=== PATIENT | male | born 1945 | race African-American/Black ===

== ENCOUNTER 2018-01-14 18:15 | Inpatient (IN) | payer OTHER, MEDICARE ==
[~2018-01-14] VITALS: Ht 185.4 cm; Wt 111.7 kg
[2018-01-14] MEDS ORDERED: ONDANSETRON HCL INJ 2 MG/ML VIAL IV PRN (19:00)
[2018-01-14] MEDS ORDERED: MORPHINE SULFATE 2 MG/ML SYR IV PRN (19:00)
[2018-01-14] MEDS ORDERED: HYDRALAZINE HCL 20 MG/ML VIAL IV PRN (19:00)
[2018-01-14] MEDS ORDERED: HYDROCODONE/APAP 5MG-325MG TAB PO PRN (19:00)
[2018-01-14 20:00] VITALS: BP 149/80
[2018-01-14 20:45] LABS: BASOPHILS % 0.3 % (0.0-1.0); EOSINOPHILS # (AUTO) 0.3 (0.0-0.4); EOSINOPHILS % 2.1 % (0.0-6.0); HEMATOCRIT 47.1 % (38.2-49.6); HEMOGLOBIN 15.4 g/dL (14.0-18.0); LYMPHOCYTES # (AUTO) 2.1 (1.0-3.2); LYMPHOCYTES % 15.1 % (18.0-39.1); MEAN CORPUSCULAR HEMOGLOBIN 31.3 pg (28-32); MEAN CORPUSCULAR HGB CONC 32.7 g/dL (31-35); MEAN CORPUSCULAR VOLUME 95.7 fL (81-99); MONOCYTES # (AUTO) 1.5 (0.2-0.8); NEUTROPHILS # (AUTO) 9.6 (2.1-6.9); NEUTROPHILS % 71.1 % (38.7-80.0); PLATELET COUNT 236 x10e3/uL (140-360); RED BLOOD COUNT 4.92 x10e6/uL (4.3-5.7); RED CELL DISTRIBUTION WIDTH 13.5 % (11.7-14.4)
[2018-01-14 20:46] LABS: INR 1.04; PROTHROMBIN TIME 14.5 seconds (11.9-14.5)
[2018-01-14 20:53] LABS: ANION GAP 17.6 mmol/L (8-16); BLOOD UREA NITROGEN 11 mg/dL (7-26); BUN/CREATININE RATIO 9 (6-25); CALCIUM 9.7 mg/dL (8.4-10.2); CARBON DIOXIDE 26 mmol/L (22-29); CHLORIDE 101 mmol/L (98-107); CREATININE, SERUM 1.16 mg/dL (0.72-1.25); EST GLOMERULAR FILTRATION RATE > 60 ML/MIN (60-); GLUCOSE 112 mg/dL (74-118); POTASSIUM 3.6 mmol/L (3.5-5.1); SODIUM 141 mmol/L (136-145)
[2018-01-14] MEDS ORDERED: MORPHINE SULFATE INJ 4 MG/ML INJ IV PRN (21:45)
[2018-01-14] MEDS: LACTATED RINGER'S 1,000 ML IV SCH (22:15)
[2018-01-14] MEDS: MEROPENEM 500 MG VIAL IV SCH (22:15)
[2018-01-14 22:30] VITALS: BP 145/71
[2018-01-14] MEDS ORDERED: COMBIGAN EYE DRO5 ML OU (22:44)
[2018-01-14] MEDS ORDERED: ADVIL200 M1 PO (22:44)
[2018-01-14] MEDS ORDERED: XALATAN2.5 ML OU (22:44)
[2018-01-14 22:48] VITALS: BP 145/71
[2018-01-15] VITALS (8 sets, daily range): BP systolic 122–147; BP diastolic 65–82
[2018-01-15] MEDS ORDERED: MEROPENEM 500MG 500 MG in SODIUM CHLORIDE 0.9% 50ML 50 ML IV SCH ×2
--- NOTE | 2018-01-15 00:05 | Diagnostic Imaging Report ---
EXAM: CHEST 2 VIEWS, PA and lateral INDICATION: Swelling/pain and testicular area COMPARISON: None FINDINGS: LINES/TUBES: None LUNGS: No consolidations or edema. Mild bibasilar atelectasis. PLEURA: No effusions or pneumothorax. HEART AND MEDIASTINUM: Normal size and contour. BONES AND SOFT TISSUES: No acute findings. IMPRESSION: Mild bibasilar atelectasis. Signed by: Dr. Ramona Varela M.D. on 01/15/2018 12:02 AM
[2018-01-15 04:16] LABS: CLARITY,URINE CLEAR (CLEAR); COLOR,URINE YELLOW (YELLOW); LEUKOCYTE ESTERASE ,URINE TRACE (NEGATIVE)
[2018-01-15 04:17] LABS: BILIRUBIN,URINE NEGATIVE (NEGATIVE); KETONES,URINE 1+ (NEGATIVE); NITRITE,URINE NEGATIVE (NEGATIVE); PROTEIN,URINE DIPSTICK NEGATIVE (NEGATIVE); URINE UROBILINOGEN 1 mg/dL (0.2 - 1)
[2018-01-15 04:22] LABS: RBC,URINE 0-5 /HPF (0-5); WBC,URINE (MAN) 21-50 /HPF (0-5)
[2018-01-15] MEDS: MEROPENEM 500 MG VIAL IV SCH ×4 (04:22→21:10)
[2018-01-15 04:23] LABS: BACTERIA,URINE MODERATE /HPF; EPITHELIAL CELLS,URINE RARE /LPF
[2018-01-15] MEDS: LACTATED RINGER'S 1,000 ML IV SCH ×2 (09:16→21:10)
--- NOTE | 2018-01-15 10:33 | History and Physical ---
CHIEF COMPLAINT: Epididymitis. HPI: This is a 72-year-old male with past medical history of glaucoma, in which he requires eye drops, who comes in as a direct admission from the urology office for concerns of epididymitis. Patient reports that he has been having his testicular pain ongoing since Saturday of last week. At first, he thought that it was just a regular itch, but then noticed that it has continued to get very swollen with some fever at home. He states that his testicles were very tender to palpation and very exquisite to pain. Patient eventually went to his urologist and was told this is epididymitis and sent here for further evaluation. Patient reports having a fever of 102 yesterday. Denies any nausea, vomiting, abdominal pain, or any other associated symptoms. He denies any chest pain or palpitations. Patient seen and evaluated at bedside on the medical floor, currently doing well with no other complaints at this time. REVIEW OF SYSTEMS: Pertinent positive: Epididymitis and fever. Pertinent negative: Denies any chest pain, palpitation, nausea, vomiting, diarrhea, dysuria, hematuria, frequency, urgency, lightheadedness, dizziness, abdominal pain, headache, shortness of breath, cough, congestion, or any other complaints. The rest of 14-point review of systems have been reviewed with the patient and are negative. ALLERGIES: NO KNOWN DRUG ALLERGIES. HOME MEDICATIONS: He takes Combigan 1 drop per eye b.i.d., next drop is Xalatan 1 drop at bedtime per eye. PAST MEDICAL HISTORY: He takes some glaucoma medications . PAST SURGICAL HISTORY: None. FAMILY HISTORY: Hypertension and diabetes. SOCIAL HISTORY: No drugs, no alcohol. Does not smoke. Still works. Good social support. PHYSICAL EXAMINATION: VITAL SIGNS: Temperature is 99, his T-max here was 100.4, he had a T-max of 102 in the urology office. His pulse is 78, respiratory rate is 18, blood pressure 125/65, pulse ox 96% on room air. GENERAL: Not in acute distress, alert and oriented x3, cooperative on examination. HEENT: Head: Normocephalic, atraumatic. Eyes: Pupils equal, round, and reactive to light bilaterally. Extraocular movements intact bilaterally. Throat: No evidence of any erythema or exudates in the posterior pharynx. Has poor dentition. NECK: Supple. Good range of motion. PULMONARY: Clear to auscultation bilaterally. No wheezing, no rales, no rhonchi, no crackles appreciated. CARDIOVASCULAR: Positive S1 and S2. No murmurs, rubs, or gallops appreciated. ABDOMEN: Soft, nondistended, nontender to palpation. Bowel sounds present. MUSCULOSKELETAL: Strength is 5/5 throughout. No evidence of any musculoskeletal deficit on examination. No weakness appreciated. NEUROLOGICAL: Cranial nerves II through XII are grossly intact. No evidence of any neurological deficits on exam. SKIN: Intact. Warm to touch. Good cap refill. PSYCHIATRIC: Normal affect and mood. EXTREMITIES: No edema. Good range of motion throughout. : Patient has some very swollen, erythematic testicles concerning for underlying epididymitis. LAB FINDINGS: Showed white count is 13.5, hemoglobin is 15.4, hematocrit is 47, platelets of 236,000. Coagulation, PT 14.5, INR 1.04, . Chemistry: Sodium 141, potassium 3.6, chloride 101, CO2 is 26, anion gap of 17, BUN is 11, creatinine is 1.1, glucose is 112. Lactic acid 13.5. Calcium 9.7. Urinalysis shows 1+ blood, trace leukocyte esterase, 21 to 50 WBCs. MICROBIOLOGY: Blood and urine cultures are pending. IMAGING STUDIES: Chest x-ray shows mild bibasilar atelectasis. IMPRESSION: 1. Epididymitis. 2. Decreased oral intake. 3. Dehydration. 4. History of glaucoma, on eye drops. PLAN: At this time, urology and ID have been consulted. Patient is currently on IV Merrem scheduled q.6h. Continue with pain control. Continue with IV fluids for now for his dehydration. His urine cultures and blood cultures are pending. I will put him on Lovenox for DVT prophylaxis. We are going to reconcile his home medications. Otherwise, patient is doing well with no other complaints. Will continue with same plan of care. Job#: [id number]
--- NOTE | 2018-01-15 13:59 | Diagnostic Imaging Report ---
Testicular ultrasound, with Doppler examination. History: Left epididymitis. Comparison: <None available>. Discussion: Evaluation of the scrotum was performed in the transverse and longitudinal planes. Color Doppler and spectral wave form analysis was performed bilaterally. The testes are normal in size measuring 4.5 x 2.4 x 3.2 cm on the right and 4.0 x 3.3 x 2.9 cm on the left. There is no evidence of an intratesticular mass. Normal and symmetrical flow is present within both testes. The right epididymis measures 1.25 X 0.7 x 0.5 cm. Left epididymis measures 1.9 x 0.9 x 1.0 cm. There is increased vascularity and blood flow to the left epididymis. Cyst in the right epididymis measures largest dimension at 0.7 cm. Small right hydrocele is present. Large debris filled left hydrocele with septations noted. Enlarged lymph node in the left inguinal canal measures 1.3 x 0.7 x 0.9 cm. IMPRESSION: 1. Slight enlargement of the left epididymis with increased blood flow compatible with epididymitis. 2. Small right epididymal cyst. 3. Large left hydrocele with debris and septations present. 4. Enlarged lymph node in the left groin may be reactive. Signed by: Dr. Tim Remy DO on 01/15/2018 1:56 PM
--- NOTE | 2018-01-15 16:59 | Consultation ---
DATE OF CONSULTATION: INFECTIOUS DISEASE CONSULTATION REASON FOR CONSULTATION: Epididymitis. HISTORY OF PRESENT ILLNESS: This is a patient who is a 72-year-old male with history of glaucoma, no past medical history. The patient comes in with redness and swelling and pain on his left side of his testicle. The patient sent to see Urology, who told him to come to the hospital. Patient is being admitted. He is on IV antibiotic. This is the first time this happened to him. He denies any past medical history besides this time and what is mentioned above. PAST MEDICAL HISTORY: Glaucoma. PAST SURGICAL HISTORY: Denies. ALLERGIES: NKA. SOCIAL HISTORY: No smoking, drug abuse, alcohol abuse. FAMILY HISTORY: Diabetes mellitus, hypertension. REVIEW OF SYSTEMS: HEENT: Negative. PULMONARY: Negative. CARDIAC: Negative. : Negative. SKIN: There are no other rashes. LAB: White count 13.5. Hemoglobin 15.4. His sodium 141, potassium 3.6, creatinine 1.16. Urine cultures and blood cultures still pending. MEDICATION: He is currently on meropenem, Lovenox and Tylenol. PHYSICAL EXAMINATION: GENERAL: He is currently alert, oriented, does not seem to be in acute distress. VITALS: Stable. Currently afebrile. HEENT: He does not appear icteric. NECK: Supple. CHEST: Clear bilaterally. HEART: S1 and S2. No S3, no S4, no murmur. ABDOMEN: Soft. No tenderness. No hepatosplenomegaly. EXTREMITIES: No edema. SKIN: No rash. THE TESTICLE: There are erythema and edema noted on the right side. IMPRESSION: Epididymitis. Agree with urine cultures, blood cultures. Obtain ultrasound of the scrotum. Urology consultation. He is currently on meropenem. Will modify after the availability of the cultures. Further recommendations to follow. Job#: [id number] EV
[2018-01-15] MEDS: ENOXAPARIN SOD INJ 40 MG/0.4 ML SYR SC SCH (17:34)
[2018-01-15] MEDS: ACETAMINOPHEN 325 MG TAB PO PRN (21:10)
[2018-01-16] VITALS (8 sets, daily range): BP systolic 109–143; BP diastolic 59–70
[2018-01-16] MEDS: MEROPENEM 500 MG VIAL IV SCH ×2 (03:50→10:20)
[2018-01-16] MEDS: LACTATED RINGER'S 1,000 ML IV SCH (05:56)
[2018-01-16 06:05] LABS: BASOPHILS % 0.4 % (0.0-1.0); EOSINOPHILS # (AUTO) 0.4 (0.0-0.4); EOSINOPHILS % 3.6 % (0.0-6.0); HEMATOCRIT 46.7 % (38.2-49.6); HEMOGLOBIN 15.3 g/dL (14.0-18.0); LYMPHOCYTES # (AUTO) 1.8 (1.0-3.2); LYMPHOCYTES % 17.8 % (18.0-39.1); MEAN CORPUSCULAR HEMOGLOBIN 31.5 pg (28-32); MEAN CORPUSCULAR HGB CONC 32.8 g/dL (31-35); MEAN CORPUSCULAR VOLUME 96.3 fL (81-99); MONOCYTES # (AUTO) 1.5 (0.2-0.8); MONOCYTES % 14.8 % (4.4-11.3); NEUTROPHILS # (AUTO) 6.2 (2.1-6.9); PLATELET COUNT 211 x10e3/uL (140-360); RED BLOOD COUNT 4.85 x10e6/uL (4.3-5.7); RED CELL DISTRIBUTION WIDTH 13.3 % (11.7-14.4)
[2018-01-16 06:16] LABS: ANION GAP 15.8 mmol/L (8-16); BLOOD UREA NITROGEN 12 mg/dL (7-26); BUN/CREATININE RATIO 13 (6-25); CALCIUM 9.4 mg/dL (8.4-10.2); CARBON DIOXIDE 22 mmol/L (22-29); CHLORIDE 102 mmol/L (98-107); CREATININE, SERUM 0.89 mg/dL (0.72-1.25); EST GLOMERULAR FILTRATION RATE > 60 ML/MIN (60-); GLUCOSE 107 mg/dL (74-118); POTASSIUM 3.8 mmol/L (3.5-5.1); SODIUM 136 mmol/L (136-145)
--- NOTE | 2018-01-16 09:36 | Progress Note ---
DATE: January 16, 2018 SUBJECTIVE: Patient is doing much better today. He says his scrotal edema and pain has improved tremendously. He has been afebrile over the last 24 hours. He is ambulating and eating well with no complaints. OBJECTIVE VITALS: Temperature 99, T-max was 100.3, pulse 75, respiratory rate 18, blood pressure 143/70, pulse ox is 97% on room air. GENERAL: Not in acute distress. Alert and oriented times 3. Cooperative on examination. HEENT: Head is normocephalic and atraumatic. Eyes: Pupils equal, round and reactive to light bilaterally. Extraocular movements intact bilaterally. NECK: Supple. Good range of motion. Throat with no evidence of any erythema or exudates in the posterior pharynx. Has poor dentition. PULMONARY: Clear to auscultation bilaterally. No wheezing. No rales. No rhonchi. No crackles appreciated. CARDIOVASCULAR: Positive S1 and S2. No murmurs, rubs or gallops appreciated. ABDOMEN: Soft, nondistended and nontender to palpation. Bowel sounds present. MUSCULOSKELETAL: Strength is 5/5 throughout. No evidence of any muscle deficit on examination. No weakness appreciated. NEUROLOGICAL: Cranial nerves II-XII are grossly intact. No evidence of any neurological deficits on exam. SKIN: Intact. Warm to touch. Good cap refill. PSYCHIATRIC: Normal affect and mood. EXTREMITIES: No edema. Good range of motion throughout. LAB FINDINGS: Show white count is 9.8, hemoglobin 15, hematocrit 46.7, and platelets of 211,000. Chemistry: Sodium 136, potassium 3.8, chloride 102, bicarb 22, anion gap of 17, creatinine 0.89, BUN is 12, glucose is 107. Urine culture is pending. Blood culture is no growth to date. IMAGING STUDIES: Testicular ultrasound shows a slight enlargement of the left epididymis with increased blood flow compatible with epididymitis. Small right epididymal cyst. Large left hydrocele with debris and septation present. Enlargement of the left groin may be reactive. There is no comments of any abscess seen. IMPRESSION 1. Epididymitis. 2. Dehydration, improved. 3. History of glaucoma, on eye drops. PLAN: At this time, his blood culture is no growth to date. Urine cultures are pending. Continue with IV Merrem and ID is following. Testicular ultrasound shows no evidence of abscess except for epididymitis. I discussed this with urology already. At this time, the patient will be here for another couple more days as he had a temp last yesterday at 100.3 and 100.4. Once ready for discharge, I will discuss this with the consultants. Will discharge on oral antibiotics. Job#: [id number] RI
[2018-01-16] MEDS: LEVOFLOXACIN 750MG/D5W 150ML 150 ML IV SCH (12:51)
[2018-01-16] MEDS: ENOXAPARIN SOD INJ 40 MG/0.4 ML SYR SC SCH (17:29)
[2018-01-17] VITALS (7 sets, daily range): BP systolic 124–148; BP diastolic 62–88
[2018-01-17] MEDS: ACETAMINOPHEN 325 MG TAB PO PRN (00:22)
[2018-01-17 05:45] LABS: BASOPHILS % 0.3 % (0.0-1.0); EOSINOPHILS # (AUTO) 0.3 (0.0-0.4); EOSINOPHILS % 2.7 % (0.0-6.0); HEMATOCRIT 44.3 % (38.2-49.6); HEMOGLOBIN 14.3 g/dL (14.0-18.0); LYMPHOCYTES # (AUTO) 1.9 (1.0-3.2); LYMPHOCYTES % 17.5 % (18.0-39.1); MEAN CORPUSCULAR HEMOGLOBIN 30.6 pg (28-32); MEAN CORPUSCULAR HGB CONC 32.3 g/dL (31-35); MEAN CORPUSCULAR VOLUME 94.7 fL (81-99); MONOCYTES # (AUTO) 1.6 (0.2-0.8); MONOCYTES % 14.7 % (4.4-11.3); NEUTROPHILS # (AUTO) 6.9 (2.1-6.9); NEUTROPHILS % 64.2 % (38.7-80.0); PLATELET COUNT 255 x10e3/uL (140-360); RED BLOOD COUNT 4.68 x10e6/uL (4.3-5.7); RED CELL DISTRIBUTION WIDTH 13.2 % (11.7-14.4)
[2018-01-17 06:01] LABS: ANION GAP 14.3 mmol/L (8-16); BLOOD UREA NITROGEN 11 mg/dL (7-26); BUN/CREATININE RATIO 10 (6-25); CALCIUM 9.5 mg/dL (8.4-10.2); CARBON DIOXIDE 26 mmol/L (22-29); CHLORIDE 103 mmol/L (98-107); EST GLOMERULAR FILTRATION RATE > 60 ML/MIN (60-); GLUCOSE 128 mg/dL (74-118); POTASSIUM 4.3 mmol/L (3.5-5.1); SODIUM 139 mmol/L (136-145)
[2018-01-17 10:17] LABS: BAND NEUTROPHILS % (MANUAL) 2 %; EOSINOPHILS % (MANUAL) 2 % (0-7); LYMPHOCYTES % (MANUAL) 15 % (19-48); METAMYELOCYTES % (MANUAL) 1 % (0-0); MONOCYTES % (MANUAL) 13 % (3.4-9.0); NEUTROPHILS % (MANUAL) 67 % (40-74)
[2018-01-17 10:18] LABS: ANISOCYTOSIS SLIGHT; PLATELET ESTIMATE ADEQUATE; PLATELET MORPHOLOGY COMMENT NORMAL; RBC MORPHOLOGY COMMENT NORMAL
[2018-01-17] MEDS: LEVOFLOXACIN 750MG/D5W 150ML 150 ML IV SCH (10:50)
[2018-01-17] MEDS ORDERED: LEVOFLOXACIN 500MG/D5W 100ML 100 ML IV SCH (11:15)
--- NOTE | 2018-01-17 16:11 | Progress Note ---
DATE: January 17, 2018 MEDICINE PROGRESS NOTE SUBJECTIVE: Patient is doing much better today with no complaints. I discussed the case with the urologist as well at bedside. Patient still has exquisite pain to his testicular area upon palpation. OBJECTIVE VITAL SIGNS: Temperature is 98.7, pulse is 72, respiratory rate is 20, blood pressure is 130/60, pulse ox 96% on room air. LAB FINDINGS: Show a white count of 7.6, hemoglobin 14, hematocrit is 44, platelets of 255. CHEMISTRY: Sodium 139, potassium 4.3, chloride is 103, bicarb is 26, anion gap of 14, BUN is 11, creatinine 0.1. MICROBIOLOGY: Blood and urine cultures were negative. IMAGING STUDIES: Testicular ultrasound again showed just some evidence of epididymitis. PHYSICAL EXAMINATION GENERAL: Not in acute distress. Alert, oriented x3, cooperative on examination. HEENT: Head: Normocephalic, atraumatic. Eyes: Pupils equally round and reactive to light bilaterally. Extraocular movements intact bilaterally. Neck was supple with good range of motion. Throat: No evidence of any erythema or exudates in the posterior pharynx. Has poor dentition. PULMONARY: Clear to auscultation bilaterally. No wheezing, no rales, no rhonchi, no crackles appreciated. CARDIOVASCULAR: Positive S1/S2. No murmurs, rubs or gallops appreciated. ABDOMEN: Soft, nondistended, nontender to palpation. Bowel sounds present. GENITOURINARY: Patient is tender to palpation on bilateral testicles. MUSCULOSKELETAL: Strength is 5/5 throughout. No evidence of any musculoskeletal deficit on examination. No weakness appreciated. NEUROLOGICAL: Cranial nerves 2-12 grossly intact. No evidence of any neurological deficit on exam. SKIN: Intact. Warm to touch. Good capillary refill. PSYCHIATRIC: Normal affect and mood. EXTREMITIES: No edema. Good range of motion throughout. IMPRESSION 1. Epididymitis. 2. Dehydration, improved. 3. History of glaucoma. PLAN: At this time I will continue with IV antibiotics. Blood and urine cultures no growth. Discussed the case with Urology. At this time will continue with IV antibiotics through the weekend and reevaluate on Saturday. He had a temp of 101.4 last night. Likely due to his epididymitis. Will continue to monitor very closely. His antibiotics are multiple and delineated in the chart. At this time we are going to monitor through the weekend before we add any other further changes with this gentleman due to the exquisite tenderness on exam. Job#: [id number] EV
--- NOTE | 2018-01-17 16:31 | Progress Note ---
DATE: January 17, 2018 UROLOGY PROGRESS NOTE The patient's temperature is 98.7. He states that he feels much better. Physical examination reveals that the left side of the scrotum is still swollen, although it is much less erythematous than it was 2 days ago and it is much less edematous than it was 2 days ago. However, he still has tenderness present. I have looked at the ultrasound study, and the ultrasound revealed evidence suggestive of left epididymitis, and there was evidence of a reactive, multiloculated hydrocele surrounding the left testicle. Physical examination reveals that the hydrocele of the left testicle is still moderately tender. My plan at this time is to have the patient remain on IV antibiotics until he is well enough to go home. It should also be noted that there was no evidence of abscess formation within the left testicle. The right testicle looked normal. There was a small cyst in the right epididymis. Job#: [id number]
[2018-01-17] MEDS: ENOXAPARIN SOD INJ 40 MG/0.4 ML SYR SC SCH (16:36)
[2018-01-17] MEDS ORDERED: SODIUM CHLORIDE 0.9% 250ML 250 ML ONE (16:39)
[2018-01-18] VITALS (8 sets, daily range): BP systolic 119–139; BP diastolic 58–76
[2018-01-18] MEDS: LEVOFLOXACIN 500MG/D5W 100ML 100 ML IV SCH (08:11)
--- NOTE | 2018-01-18 10:58 | Progress Note ---
DATE: January 18, 2018 INTERNAL MEDICINE PROGRESS NOTE SUBJECTIVE: Patient is doing well today, with no complaints. His scrotum is less swollen and less painful. OBJECTIVE VITAL SIGNS: Temperature is 98.7, T-max is 99.5, pulse 75, respiratory rate is 18, blood pressure is 138/72, pulse ox 97% on room air. GENERAL: Not in acute distress, alert and oriented x3, cooperative on examination. HEENT: Head normocephalic, atraumatic. Eyes: Pupils equally round and reactive to light bilaterally. Extraocular movements intact bilaterally. Throat: No evidence of any erythema or exudates in the posterior pharynx. Has poor dentition. NECK: Supple with good range of motion. PULMONARY: Clear to auscultation bilaterally. No wheezing, no rales, no rhonchi, no crackles appreciated. CARDIOVASCULAR: Positive S1 and S2. No murmurs, rubs, or gallops appreciated. ABDOMEN: Soft, nondistended, nontender to palpation. Bowel sounds present. MUSCULOSKELETAL: Strength is 5/5 throughout. No evidence of any musculoskeletal deficit on examination. No weakness appreciated. NEUROLOGICAL: Cranial nerves II-XII grossly intact. No evidence of any neurological deficit on exam. SKIN: Intact. Warm to touch. Good capillary refill. PSYCHIATRIC: Normal affect and mood. EXTREMITIES: No edema. Good range of motion throughout. LAB FINDINGS: Show CBC; white count 10.6, hemoglobin 14, hematocrit is 44, platelets of 255. Sodium 139, potassium is 4.3, chloride is 103, bicarb 26, anion gap of 14, BUN is 11, creatinine is 1.1. MICROBIOLOGY: Blood and urine cultures were negative. IMAGING STUDIES: None. IMPRESSION 1. Epididymitis. 2. Dehydration, improved. 3. History of glaucoma. PLAN: At this time, continue with IV antibiotics through the weekend and hopefully, his pain and swelling is improved by Saturday. Oral Levaquin prescription is already in the chart. He has been afebrile over the last 24 hours. Continue with same plan of care. Case was discussed with urology yesterday. Continue with IV antibiotics. We will get a.m. labs. Job#: [id number] [facility]
--- NOTE | 2018-01-18 15:49 | Progress Note ---
DATE: January 18, 2018 ATTENDING PHYSICIAN: Dr. Rivas. CONSULTING PHYSICIAN: Dr. Ryan Casey. SUBJECTIVE: The patient states he is feeling better after being on meropenem for several days now. He states that, by his perception, the swelling in the left testicle is going down. PHYSICAL EXAMINATION GENERAL: Reveals that the patient is alert and oriented to person, place, and time. LUNGS: Clear. ABDOMEN: Soft. RECTAL: He still has swelling in the left testicle due to the reactive hydrocele. The edema in the skin is greatly improved; however, he still has significant tenderness in that area. LABS: His hemoglobin was 14.3, hematocrit 44.3, white blood cell count 10.6. IMPRESSION AND PLAN: My plan at this time is to continue the patient on IV antibiotics for another day or 2 before discharge. Job#: [id number] LPA
[2018-01-18] MEDS: ENOXAPARIN SOD INJ 40 MG/0.4 ML SYR SC SCH (16:18)
[2018-01-19] VITALS (7 sets, daily range): BP systolic 94–145; BP diastolic 50–84
[2018-01-19] MEDS: LEVOFLOXACIN 500MG/D5W 100ML 100 ML IV SCH (07:42)
--- NOTE | 2018-01-19 10:49 | Progress Note ---
DATE: January 19, 2018 INTERNAL MEDICINE PROGRESS NOTE SUBJECTIVE: Patient reports decreased pain in the scrotum area. He is tolerating diet well. He has no other complaints at this time. OBJECTIVE VITAL SIGNS: Temperature is 98.4, pulse 63, respiratory rate is 18, blood pressure is 122/59, pulse ox 95% on room air. GENERAL: Not in acute distress, alert and oriented x3, cooperative on exam. HEENT: Head normocephalic, atraumatic. Eyes: Pupils equally round and reactive to light bilaterally. Extraocular movements intact bilaterally. Throat: No evidence of any erythema or exudates in the posterior pharynx. Has poor dentition. NECK: Supple with good range of motion. PULMONARY: Clear to auscultation bilaterally. No wheezing, no rales, no rhonchi, no crackles appreciated. CARDIOVASCULAR: Positive S1 and S2. No murmurs, rubs, or gallops appreciated. ABDOMEN: Soft, nondistended, nontender to palpation. Bowel sounds present. MUSCULOSKELETAL: Strength is 5/5 throughout. No evidence of any musculoskeletal deficit on examination. No weakness appreciated. NEUROLOGICAL: Cranial nerves II-XII grossly intact. No evidence of any neurological deficit on exam. SKIN: Intact. Warm to touch. Good capillary refill. PSYCHIATRIC: Normal affect and mood. EXTREMITIES: No edema. Good range of motion throughout. LAB FINDINGS: Show white count 10.6, hemoglobin 14, hematocrit is 44, platelets of 255. Chemistries: Sodium 139, potassium is 4.3, bicarb 26, anion gap of 14, BUN is 11, creatinine is 1.1, calcium 9.5. MICROBIOLOGY: None. IMPRESSION 1. Epididymitis. 2. Dehydration, improved. 3. History of glaucoma. PLAN: At this time, his scrotal swelling and pain has tremendously improved. We will continue with IV antibiotics till tomorrow. Then, we will discharge on oral Levaquin, which is currently in the chart. He is afebrile. White count is normal. I discussed this with urology. Patient will be discharged in the morning. Job#: [id number] KIMMY
--- NOTE | 2018-01-19 15:21 | Progress Note ---
DATE: January 19, 2018 AGE: 72. SEX: Male. ATTENDING PHYSICIAN: Dr. Jia Rivas. CONSULTING PHYSICIAN: Dr. Ryan Casey. SUBJECTIVE: The patient is afebrile today. He states that his pain is greatly improved. PHYSICAL EXAMINATION: Reveals that edema in the skin over his scrotum is greatly improved. The erythema is greatly improved. He still has some moderate tenderness to the left testicle. The right testicle is normal. IMPRESSION: My impression at this time is that patient is responding well to the intravenous antibiotics and I anticipate that he may be able to go home tomorrow on oral antibiotics and pain medication. I would like to see him again in two office in 2 weeks for followup. Job#: [id number] MADISYN
[2018-01-19] MEDS: ENOXAPARIN SOD INJ 40 MG/0.4 ML SYR SC SCH (17:10)
[2018-01-20] VITALS: BP 145/81
[2018-01-20 04:00] VITALS: BP 138/82
[2018-01-20 06:26] LABS: BASOPHILS # (AUTO) 0.1 (0.0-0.1); BASOPHILS % 0.6 % (0.0-1.0); EOSINOPHILS # (AUTO) 0.5 (0.0-0.4); HEMATOCRIT 43.9 % (38.2-49.6); HEMOGLOBIN 14.7 g/dL (14.0-18.0); LYMPHOCYTES # (AUTO) 2.1 (1.0-3.2); LYMPHOCYTES % 22.9 % (18.0-39.1); MEAN CORPUSCULAR HEMOGLOBIN 31.2 pg (28-32); MEAN CORPUSCULAR HGB CONC 33.5 g/dL (31-35); MEAN CORPUSCULAR VOLUME 93.2 fL (81-99); MONOCYTES % 10.8 % (4.4-11.3); NEUTROPHILS # (AUTO) 5.3 (2.1-6.9); NEUTROPHILS % 58.7 % (38.7-80.0); PLATELET COUNT 359 x10e3/uL (140-360); RED BLOOD COUNT 4.71 x10e6/uL (4.3-5.7)
[2018-01-20 06:46] LABS: ANION GAP 15.9 mmol/L (8-16); BLOOD UREA NITROGEN 11 mg/dL (7-26); BUN/CREATININE RATIO 10 (6-25); CALCIUM 9.6 mg/dL (8.4-10.2); CARBON DIOXIDE 25 mmol/L (22-29); CHLORIDE 104 mmol/L (98-107); CREATININE, SERUM 1.12 mg/dL (0.72-1.25); EST GLOMERULAR FILTRATION RATE > 60 ML/MIN (60-); GLUCOSE 113 mg/dL (74-118); POTASSIUM 3.9 mmol/L (3.5-5.1); SODIUM 141 mmol/L (136-145)
[2018-01-20 07:20] VITALS: BP 119/69
[2018-01-20 07:30] VITALS: BP 119/69
[2018-01-20] MEDS: LEVOFLOXACIN 500MG/D5W 100ML 100 ML IV SCH (09:10)
[2018-01-20] MEDS ORDERED: LEVAQUIN500 MG PO (09:58)
[2018-01-20 13:51] LABS: EOSINOPHILS % (MANUAL) 1 % (0-7); LYMPHOCYTES % (MANUAL) 26 % (19-48); MONOCYTES % (MANUAL) 11 % (3.4-9.0); NEUTROPHILS % (MANUAL) 56 % (40-74)
[2018-01-20 13:52] LABS: PLATELET ESTIMATE ADEQUATE; PLATELET MORPHOLOGY COMMENT NORMAL; RBC MORPHOLOGY COMMENT NORMAL
--- NOTE | 2018-01-20 14:36 | Discharge Summary ---
FINAL DISCHARGE DIAGNOSES 1. Epididymitis. 2. Dehydration improved. 3. History of glaucoma. 4. Large left hydrocele with septation. CONSULTANTS: We had urology and infectious disease. VITAL SIGNS: Temperature is 98.3, T max 99.5. His pulse is 68. Respiratory rate is 18, blood pressure 119/69, pulse ox 96% on room air. LAB FINDINGS: Show white count 8.9, hemoglobin 14.7, hematocrit is 44, platelets of 359,000. Coagulation: PT 14.5, INR 1. Chemistry: Sodium 141, potassium 3.9, chloride 104, bicarb 25, anion gap of 15, BUN is 11, creatinine is 1.1, glucose 113. Urinalysis was consistent with UTI., but found to be a contaminate. Urine culture was a contaminate. Blood cultures showed no growth to date x2. IMAGING STUDIES: Chest x-ray was found to be negative. He had a testicular ultrasound that showed a slight enlargement of the left epidermidis with increased blood flow compatible with epididymitis. Large left hydrocele was debris and septations present. HOSPITAL COURSE: This is a 72-year-old male who was directly admitted by the urologist due to worsening pain in the scrotal area. Imaging studies: Ultrasound was consistent epididymitis. Patient was on IV antibiotics. ID and urology were consulted. Patient improved throughout the hospital course. The pain improved in his scrotal area. His erythema and swelling also improved throughout the hospital course. He will be discharged on oral Levaquin 500 mg 1 tab q.24 hours for 14 more days. Patient was cleared by both consultants for discharge home. He was advised to follow up with urology in the next 1-2 weeks to deal with the left hydrocele seen on ultrasound. The patient verbalized understanding. On the day of discharge, vital signs stable. Labs reviewed and stable. The patient was seen, evaluated and examined thoroughly. On the day of discharge, no other complaints. The patient verbalized understanding and agrees with the plan of care. He has a followup appointment as an outpatient with the primary care physician in 1 week, urology in 2 weeks' time. MEDICATIONS: See med reconciliation form including Levaquin 500 mg one tablet p.o. q.24 h. for 14 total days. DISPOSITION: Home. CONDITION ON DISCHARGE: Stable. DIET: Heart Healthy. In the event of any worsening symptoms, the patient was advised to come back to the Emergency Department for further evaluation. This discharge summary took greater than 35 minutes. ASIA ALMARAZ MD Job#: [id number] GH
== END 2018-01-20 10:29 | disposition home or self-care (01) | DRG 728 ==
LOC: MED/SURG3 18:15
PROVIDERS: ADMIT Internal Medicine; ATTEND Internal Medicine
DX: N45.1 Epididymitis (principal); E86.0 Dehydration; N43.2 Other hydrocele; H40.9 Unspecified glaucoma; K43.9 Ventral hernia without obstruction or gangrene; I10 Essential (primary) hypertension; E66.9 Obesity, unspecified; Z68.32 Body mass index [BMI] 32.0-32.9, adult
CPT/HCPCS: 36415; 71046; 76870; 80048; 81001; 83605; 85025; 85610; 87040; 87086; 93005; 93976; 96360; 96367; 96372; J1650; J1956; J2185; J7050; J7120